=== PATIENT | female | born 1955 | race Caucasian/White ===

== ENCOUNTER 2017-12-16 00:32 | Emergency (ER) | payer OTHER ==
[~2017-12-16] VITALS: Ht 170.2 cm; Wt 80.0 kg
[~2017-12-16 00:32] MED LIST: ABIL15TA2 PO; CHOL4 PO; DOXE50 PO; GABA800T PO; IMOD2TAB PO; MACR100C37 PO; METR-1 PO; NORC10TA2 PO; PRIS100T PO; PROBCAP4 PO; SUVO1TAB4 PO; XANA2TAB2 PO
[2017-12-16 00:39] VITALS: BP 128/92; PULSE 110; RESP 18; TEMP 98.6; O2SAT 98
[2017-12-16 01:21] LABS: AUTOMATED NEUTROPHIL # 6.2 TH/MM3 (1.8-7.7); BASOPHIL # 0.1 TH/MM3 (0-0.2); BASOPHIL % 1.1 % (0.0-2.0); EOSINOPHIL # 0.1 TH/MM3 (0-0.4); EOSINOPHIL % 0.9 % (0.0-4.0); HEMATOCRIT 45.5 % (35.0-46.0); HEMOGLOBIN 15.9 GM/DL (11.6-15.3); LYMPHOCYTE # 4.1 TH/MM3 (1.0-4.8); MEAN CELL VOLUME 88.6 FL (80.0-100.0); MEAN CORPUSCULAR HEMOGLOBIN 30.9 PG (27.0-34.0); MEAN CORPUSCULAR HGB CONC 34.9 % (32.0-36.0); MEAN PLATELET VOLUME 7.1 FL (7.0-11.0); MONO % 5.1 % (0.0-8.0); MONOCYTE # 0.6 TH/MM3 (0-0.9); NEUT % 55.9 % (16.0-70.0); PLATELET COUNT 264 TH/MM3 (150-450); RED BLOOD COUNT 5.14 MIL/MM3 (4.00-5.30)
[2017-12-16 02:30] LABS: BICARBONATE 27.1 MEQ/L (21.0-32.0); CALCIUM 9.1 MG/DL (8.5-10.1); CREATININE 1.08 MG/DL (0.50-1.00)
--- NOTE | 2017-12-16 04:18 | RADRPT ---
EXAM DATE/TIME: 12/16/2017 03:59 [place] COMPARISON: No previous studies available for comparison. INDICATIONS : Altered mental status. Seizure. RADIATION DOSE: 34.32 CTDIvol (mGy) MEDICAL HISTORY : None SURGICAL HISTORY : None. ENCOUNTER: Initial ACUITY: 1 day PAIN SCALE: 0/10 LOCATION: cranial TECHNIQUE: Multiple contiguous axial images were obtained of the head. Using automated exposure control and adj ustment of the mA and/or kV according to patient size, radiation dose was kept as low as reasonably a chievable to obtain optimal diagnostic quality images. DICOM format image data is available electro nically for review and comparison. FINDINGS: CEREBRUM: The ventricles are normal for age. No evidence of midline shift, mass lesion, hemorrhage or acute in farction. No extra-axial fluid collections are seen. POSTERIOR FOSSA: The cerebellum and brainstem are intact. The 4th ventricle is midline. The cerebellopontine angle i s unremarkable. EXTRACRANIAL: The visualized portion of the orbits is intact. SKULL: The calvaria is intact. No evidence of skull fracture. CONCLUSION: Normal examination. Chuy Bartlett MD on December 16, 2017 at 4:15 Board Certified Radiologist. This report was verified electronically.
[2017-12-16 05:00] VITALS: BP 102/64; PULSE 93; RESP 13; O2SAT 99
--- NOTE | 2017-12-16 06:08 | PD ---
HPI Chief Complaint: Seizure Time Seen by Provider: : Travel History International Travel<30 days: No Contact w/Intl Traveler<30days: No Traveled to known affect area: No History of Present Illness HPI Patient is a 62 year old female who comes in after possibly having a seizure tonight. Per EMS, family said she had seizure like activity at home. EMS states she has only ever had seizures before when withdrawing. She takes Benzos and she injects herself with opioids. She says she was at [facility] earlier today for a panic attack. She does not have any specific complaints. EMS says her family wanted her to come here for detox. PFSH Past Medical History ADD: Yes ADHD: Yes Arthritis: No Asthma: Yes Autoimmune Disease: Yes (GRAVES DISEASE) Blood Disorders: No Anxiety: Yes Depression: Yes Heart Rhythm Problems: Yes (GRAVES DISEASE) Cancer: Yes Cardiovascular Problems: Yes High Cholesterol: Yes Chemotherapy: No Chest Pain: Yes Congestive Heart Failure: No COPD: No Cerebrovascular Accident: No Diabetes: No Diminished Hearing: No Endocrine: Yes Fibromyalgia: Yes GERD: Yes Genitourinary: No Headaches: No Hepatitis: No Hiatal Hernia: No Hypertension: No Immune Disorder: No Insomnia: Yes Kidney Stones: No Musculoskeletal: No Neurologic: Yes Psychiatric: Yes Reproductive: Yes (CERVICAL CANCER) Respiratory: Yes Migraines: Yes Myocardial Infarction: No Radiation Therapy: No Renal Failure: No Seizures: No Sickle Cell Disease: No Sleep Apnea: Yes Thyroid Disease: Yes Ulcer: No Tetanus Vaccination: < 5 Years Influenza Vaccination: No Menopausal: Yes : 2 Para: 2 Dilation and Curettage (D&C): Yes Past Surgical History Appendectomy: Yes Cholecystectomy: No Gynecologic Surgery: Yes (HYSTERECTOMY, D+C X 3) Hysterectomy: Yes Tonsillectomy: Yes Other Surgery: Yes Social History Alcohol Use: No Tobacco Use: Yes (1/2 PPD) Substance Use: Yes (DILAUDID) Allergies-Medications (Allergen,Severity, Reaction): Coded Allergies: duloxetine (Unverified Allergy, Severe, 06/28/17) Per Pharmacist - [facility] [phone]. baclofen (Unverified Allergy, Intermediate, Confusion, 06/28/17) [facility] [phone]. nicotine (Unverified Allergy, Mild, RASH, 06/28/17) trazodone (Unverified Allergy, Mild, MEMORY LOSS, 06/28/17) pseudoephedrine (Unverified Allergy, Unknown, agitation, 06/28/17) scopolamine (Unverified Allergy, Unknown, hallucinations, 06/28/17) Reported Meds & Prescriptions Reported Meds & Active Scripts Active Active Prescriptions or Reported Medications Unobtainable Review of Systems ROS Limitations: Poor Historian Physical Exam Narrative GENERAL: Awake and alert, in no acute distress. SKIN: Focused skin assessment warm/dry. HEAD: Atraumatic. Normocephalic. EYES: Pupils equal and round. No scleral icterus. EOMI. ENT: Mucous membranes pink and moist. NECK: Trachea midline. No JVD. CARDIOVASCULAR: Regular rate and rhythm. No murmur appreciated. RESPIRATORY: No accessory muscle use. Clear to auscultation. Breath sounds equal bilaterally. GASTROINTESTINAL: Abdomen soft, non-tender, nondistended. MUSCULOSKELETAL: No obvious deformities. No clubbing. No cyanosis. No edema. NEUROLOGICAL: Awake and alert. No obvious cranial nerve deficits. Motor grossly within normal limits. Normal speech. PSYCHIATRIC: Appropriate mood and affect; insight and judgment normal. Data Data Last Documented VS Vital Signs Date Time Temp Pulse Resp B/P (MAP) Pulse Ox O2 Delivery O2 Flow Rate FiO2 12/16/17 05:00 93 13 102/64 (77) 99 Room Air 12/16/17 00:39 98.6 Orders Orders Complete Blood Count With Diff (12/16/17 00:57) Basic Metabolic Panel (Bmp) (12/16/17 00:57) Ct Brain W/O Iv Contrast(Rout) (12/16/17 ) Drug Screen, Random Urine (12/16/17 01:17) Labs Laboratory Tests Test 12/16/17 01:00 12/16/17 01:55 12/16/17 02:50 White Blood Count 11.0 TH/MM3 Red Blood Count 5.14 MIL/MM3 Hemoglobin 15.9 GM/DL Hematocrit 45.5 % Mean Corpuscular Volume 88.6 FL Mean Corpuscular Hemoglobin 30.9 PG Mean Corpuscular Hemoglobin Concent 34.9 % Red Cell Distribution Width 15.0 % Platelet Count 264 TH/MM3 Mean Platelet Volume 7.1 FL Neutrophils (%) (Auto) 55.9 % Lymphocytes (%) (Auto) 37.0 % Monocytes (%) (Auto) 5.1 % Eosinophils (%) (Auto) 0.9 % Basophils (%) (Auto) 1.1 % Neutrophils # (Auto) 6.2 TH/MM3 Lymphocytes # (Auto) 4.1 TH/MM3 Monocytes # (Auto) 0.6 TH/MM3 Eosinophils # (Auto) 0.1 TH/MM3 Basophils # (Auto) 0.1 TH/MM3 CBC Comment AUTO DIFF Differential Comment AUTO DIFF CONFIRMED Platelet Estimate NORMAL Platelet Morphology Comment NORMAL Blood Urea Nitrogen 22 MG/DL Creatinine 1.08 MG/DL Random Glucose 119 MG/DL Calcium Level 9.1 MG/DL Sodium Level 136 MEQ/L Potassium Level 4.1 MEQ/L Chloride Level 100 MEQ/L Carbon Dioxide Level 27.1 MEQ/L Anion Gap 9 MEQ/L Estimat Glomerular Filtration Rate 51 ML/MIN MDM Medical Decision Making Medical Screen Exam Complete: Yes Emergency Medical Condition: Yes Medical Record Reviewed: Yes Differential Diagnosis intoxication vs seizure vs psychosis Narrative Course Patient is a 62 year old female who comes in after a possible seizure. Exam shows an intoxicated female, no other acute abnormalities. IV established, labs sent. Labs show no acute abnormalities. Drug screen positive for cannabis , benzos, cocaine, opiates. Patient observed in the ED. Advised to quit using drugs. Advised to follow up with a primary doctor. Advised to return for worsening symptoms. Last [address] 12/16/17 0000 Signed Impressions: Service Date/Time: Saturday, December 16, 2017 03:59 - CONCLUSION: Normal examination. Chuy Bartlett MD Given info for SMA. Diagnosis Primary Impression: Polysubstance abuse Patient Instructions: General Instructions, Polysubstance Abuse (ED) Additional Instructions: Avoid drug use. Follow up with Ferdinand Lind. Follow up with a primary care doctor. Return to the ED as needed for any worsening symptoms. Scripts Unable to Obtain Active Prescriptions or Reported Meds Disposition: 01 DISCHARGE HOME Condition: Stable Jossie Bates MD Dec 16, 2017 06:08
--- NOTE | 2017-12-16 19:53 | EKG ---
Date Performed: 12/16/2017 Time Performed: 00:42:11 PTAGE: 62 years EKG: SINUS TACHYCARDIA POSSIBLE LEFT ATRIAL ENLARGEMENT LEFT ANTERIOR FASCICULAR BLOCK POSSIBLE LEFT VENTRICULAR HYPERTROPHY ABNORMAL ECG Since the prior tracing, there has been no significant garcia ge PREVIOUS TRACING : 04/30/2015 08.52 DOCTOR: Wu Arriola Interpretating Date/Time 12/16/2017 19:51:41
== END 2017-12-16 07:59 | disposition home or self-care (01) ==
LOC: NEPC 00:32
DX: F19.10 Other psychoactive substance abuse, uncomplicated (principal); R94.31 Abnormal electrocardiogram [ECG] [EKG]; J45.909 Unspecified asthma, uncomplicated; E05.00 Thyrotoxicosis with diffuse goiter without thyrotoxic crisis or storm; F32.9 Major depressive disorder, single episode, unspecified; E78.00 Pure hypercholesterolemia, unspecified; M79.7 Fibromyalgia; F17.200 Nicotine dependence, unspecified, uncomplicated; Z88.8 Allergy status to other drugs, medicaments and biological substances; Z85.41 Personal history of malignant neoplasm of cervix uteri
CPT/HCPCS: 70450; 80048; 80307; 85025; 93005